=== PATIENT | female | born 1945 | race Two or more races ===

== ENCOUNTER 2019-05-30 14:04 | Emergency (ER) | payer OTHER ==
[~2019-05-30] VITALS: Ht 157.5 cm; Wt 82.6 kg
[2019-05-30] MEDS ORDERED: BUMETANIDE1 MG (14:57)
[2019-05-30] MEDS ORDERED: BUSPIRONE HCL5 MG (14:57)
[2019-05-30] MEDS ORDERED: DOXAZOSIN MESYLA4 MG (14:57)
[2019-05-30] MEDS ORDERED: ALENDRONATE SOD70 MG (14:57)
[2019-05-30] MEDS ORDERED: CLOPIDOGREL BIS75 MG (14:58)
[2019-05-30] MEDS ORDERED: GABAPENTIN800 MG (14:59)
[2019-05-30] MEDS ORDERED: SIMVASTATIN20 MG (14:59)
[2019-05-30] MEDS ORDERED: OMEPRAZOLE20 M1 (14:59)
[2019-05-30] MEDS ORDERED: COZAAR50 MG (14:59)
[2019-05-30] MEDS ORDERED: METFORMIN HCL500 M2 (14:59)
[2019-05-30] MEDS ORDERED: PROCTOZONE-HC30 GM (15:00)
[2019-05-30] MEDS ORDERED: SYNTHROID50 MCG (15:00)
== END 2019-05-30 22:23 | disposition home or self-care (01) ==
LOC: ER 14:04
DX: K59.09 Other constipation (principal)

== ENCOUNTER 2025-02-25 17:15 | Inpatient (IN) | payer OTHER ==
[~2025-02-25] VITALS: Ht 157.5 cm; Wt 59.9 kg
[~2025-02-25 17:15] MED LIST: ALENDRONATE SOD70 MG; BUMETANIDE1 MG; BUSPIRONE HCL5 MG; CLOPIDOGREL BIS75 MG; COZAAR50 MG; DOXAZOSIN MESYLA4 MG; GABAPENTIN800 MG; METFORMIN HCL500 M2; OMEPRAZOLE20 M1; PROCTOZONE-HC30 GM; SIMVASTATIN20 MG; SYNTHROID50 MCG
[2025-02-25] MEDS ORDERED: GRALISE600 MG PO (17:52)
[2025-02-25] MEDS ORDERED: BUMETANIDE1 MG PO (17:53)
[2025-02-25] MEDS ORDERED: ECOTRIN81 MG PO (17:53)
[2025-02-25] MEDS ORDERED: ATACAND16 MG PO (17:53)
[2025-02-25] MEDS ORDERED: METFORMIN HCL1000 MG PO (17:53)
[2025-02-25] MEDS ORDERED: BUSPIRONE HCL5 MG PO (17:53)
[2025-02-25] MEDS ORDERED: RESTORIL15 M1 PO (17:54)
[2025-02-25] MEDS ORDERED: SIMVASTATIN5 MG PO (17:54)
[2025-02-25] MEDS ORDERED: SYNTHROID75 MCG PO (17:54)
[2025-02-25] MEDS ORDERED: PEPCID AC20 MG PO (17:54)
[2025-02-25] MEDS ORDERED: MINERAL OIL 30 ML BLIST.PACK PO ONE (18:30)
[2025-02-25] MEDS ORDERED: MAGNESIUM HYDROXIDE 400 MG/5 ML ML PO ONE (18:30)
[2025-02-25] MEDS ORDERED: LACTULOSE 20 G/30 ML BLIST.PACK PO ONE (18:30)
[2025-02-25] MEDS ORDERED: LACTULOSE 20 G/30 ML BLIST.PACK ONE (18:31)
[2025-02-25] MEDS ORDERED: MINERAL OIL 30 ML BLIST.PACK ONE (18:31)
[2025-02-25] MEDS ORDERED: DIATRIZOATE MEGLUMINE, SODIUM 30 ML BOTTLE ONE (20:24)
[2025-02-25] MEDS ORDERED: DIATRIZOATE MEGLUMINE, SODIUM 30 ML BOTTLE PO ONE (20:30)
[2025-02-25] MEDS ORDERED: 0.9 % SODIUM CHLORIDE 1,000 ML IV ONE (20:30)
[2025-02-25] MEDS ORDERED: 0.9 % SODIUM CHLORIDE 500 ML IV ONE (20:45)
[2025-02-25 21:48] LABS: HEMATOCRIT 33.5 % (36.0-45.00); HEMOGLOBIN 11.4 g/dL (12.0-15.00); MEAN CELL VOLUME 90.4 fL (80.00-100.00); MEAN CORPUSCULAR HEMOGLOBIN 30.8 pg (27.00-32.0); PLATELET COUNT 232 K/uL (150-450); RED BLOOD COUNT 3.71 M/uL (4.00-6.00)
[2025-02-25 21:53] LABS: ERYTHROCYTE SEDIMENTATION RATE 27 mm/hr
[2025-02-25 22:31] LABS: INR 1.08; PARTIAL THROMBOPLASTIN TIME 27.8 SECONDS (22.0-34.0); PROTHROMBIN TIME 11.7 SECONDS (9.0-11.5)
[2025-02-25 22:36] LABS: ALBUMIN 3.9 gm/dL (3.4-5.0); BILIRUBIN TOTAL 0.35 mg/dL (0.3-1.2); CALCIUM 9.4 mg/dL (8.5-10.1); CREATININE SERUM 1.1 mg/dL (0.55-1.02); GFR 47.91; GLOBULINA 3.6 G/DL (2.4-3.5); POTASSIUM 5.07 mEq/L (3.5-5.1); TOTAL PROTEIN 7.5 gm/dL (6.4-8.2)
[2025-02-25 23:05] LABS: URINE APPEARANCE Clear; URINE BILIRRUBIN Negative (NEGATIVE); URINE BLOOD NHT; URINE COLOR Yellow; URINE GLUCOSE Negative (NEGATIVE); URINE KETONE Negative (NEGATIVE); URINE LEUKOCYTE Moderate; URINE NITRATE Negative; URINE PROTEIN Negative (NEGATIVE); URINE UROBILINOGEN 0.2 E.U./dl
[2025-02-25 23:08] LABS: URINE BACTERIA 57.5 uL (0.0-1933); URINE CAST 3.82 uL (0.0-1.40); URINE EPITHELIAL CELLS 16.6 uL (0.0-38.8); URINE WBC 82.2 uL (0.0-23.2)
[2025-02-25 23:35] LABS: COVID-19 AG NEGATIVE (NEGATIVE)
[2025-02-25] MEDS ORDERED: CEFTRIAXONE SODIUM 2,000 MG in 0.9 % SODIUM CHLORIDE 100 ML IV SCH (23:36)
[2025-02-25] MEDS ORDERED: FAMOTIDINE/PF 20 MG in 0.9 % SODIUM CHLORIDE 8 ML IV PUSH SCH (23:38)
[2025-02-25] MEDS ORDERED: DEXTROSE 50 % IN WATER 0.5 G/ML DISP.SYRIN IV PRN (23:45)
[2025-02-25] MEDS ORDERED: ONDANSETRON HCL 4 MG in 0.9 % SODIUM CHLORIDE 50 ML IV PRN (23:45)
[2025-02-25] MEDS ORDERED: INSULIN LISPRO 1,000 UNIT/10 ML UNITS SUBCUTANEO PRN (23:45)
[2025-02-25] MEDS ORDERED: 0.9 % SODIUM CHLORIDE 1,000 ML IV SCH (23:45)
[2025-02-25] MEDS ORDERED: ACETAMINOPHEN 500 MG GEL..CAP PO PRN (23:45)
[2025-02-26] MEDS ORDERED: FAMOTIDINE/PF 20 MG/2 ML VIAL ONE (00:03)
[2025-02-26] MEDS ORDERED: CEFTRIAXONE SODIUM 2,000 MG VIAL ONE (00:03)
[2025-02-26] MEDS ORDERED: LEVOTHYROXINE SODIUM 75 MCG TABLET PO SCH (06:00)
[2025-02-26 08:00] VITALS: BP 105/67; O2SAT 95
[2025-02-26] MEDS ORDERED: BUMETANIDE 0.5 MG TABLET PO SCH (09:00)
[2025-02-26] MEDS ORDERED: POLYETHYLENE GLYCOL 3350 17 GM BLIST.PACK PO SCH (09:00)
[2025-02-26] MEDS ORDERED: CANDESARTAN CILEXETIL 16 MG TABLET PO SCH (09:00)
[2025-02-26] MEDS ORDERED: ASPIRIN 81 MG TABLET.EC PO SCH (09:00)
[2025-02-26] MEDS ORDERED: NA PHOS,M-B/NA PHOS,DI-BA 1 BOTTLE ENEMA RECTAL STA (10:04)
[2025-02-26 16:00] VITALS: BP 112/70; O2SAT 97
[2025-02-26] MEDS ORDERED: SIMVASTATIN 10 MG TABLET PO SCH (17:00)
[2025-02-26] MEDS ORDERED: TEMAZEPAM 15 MG CAPSULE PO SCH (21:00)
[2025-02-26] MEDS ORDERED: GABAPENTIN 800 MG TABLET PO SCH (21:00)
[2025-02-27 00:48] VITALS: BP 93/61; O2SAT 98
[2025-02-27] MEDS ORDERED: DEXTROSE 50 % IN WATER 0.5 G/ML VIAL IV PRN (07:45)
[2025-02-27 08:08] VITALS: BP 110/72; O2SAT 99
[2025-02-27] MEDS ORDERED: BUSPIRONE HCL 5 MG TABLET PO SCH ×2 (09:00)
[2025-02-27] MEDS ORDERED: GABAPENTIN 100 MG CAPSULE PO SCH (09:00)
== END 2025-02-27 17:08 | disposition home or self-care (01) | DRG 392 ==
LOC: ER 17:16 → SURH 02-26 00:34 → MEDJ 02-26 00:34 → SEC-K 02-26 00:45 → MEDJ 02-26 01:44 → SEC-K 02-26 02:43 → SURH 02-26 02:45
PROVIDERS: General Practice; ADMIT Student in an Organized Health Care Education/Training Program; ATTEND Student in an Organized Health Care Education/Training Program
DX: K59.00 Constipation, unspecified (principal); N39.0 Urinary tract infection, site not specified; R10.9 Unspecified abdominal pain

== ENCOUNTER 2025-03-26 18:44 | Emergency (ER) | payer OTHER ==
[~2025-03-26] VITALS: Ht 157.5 cm; Wt 61.2 kg
[~2025-03-26 18:44] MED LIST changes: +ATACAND16 MG PO; +BUMETANIDE1 MG PO; +BUSPIRONE HCL5 MG PO; +ECOTRIN81 MG PO; +GRALISE600 MG PO; +METFORMIN HCL1000 MG PO; +PEPCID AC20 MG PO; +RESTORIL15 M1 PO; +SIMVASTATIN5 MG PO; +SYNTHROID75 MCG PO
[2025-03-26] MEDS ORDERED: FOSAMAX (19:44)
[2025-03-26] MEDS ORDERED: 0.9 % SODIUM CHLORIDE 1,000 ML IV ONE (20:30)
[2025-03-26] MEDS ORDERED: FAMOtidine 10 MG/ML (4ML VIAL) IV ONE (20:30)
[2025-03-26] MEDS ORDERED: BARIUM SULFATE 450 ML ORAL.SUSP PO ONE (20:40)
[2025-03-26] MEDS ORDERED: FAMOTIDINE/PF 20 MG/2 ML VIAL ONE (20:41)
[2025-03-26 21:07] LABS: BASO % 0.4 % (0.1-1.2); EOS # 0.42 (0.04-0.54); EOS % 6.3 % (0.7-7.0); HEMOGLOBIN 10.7 g/dL (11.2-15.7); LYMPH # 1.83 (1.18-3.74); LYMPH % 27.2 % (19.3-53.1); MONO # 0.66 (0.24-0.82); MONO % 9.8 % (4.7-12.5); NEUT # 3.77 (1.56-6.13); NEUT % 56.2 % (34.0-71.1); PLATELET COUNT 231 K/uL (163-369); RED BLOOD COUNT 3.57 M/uL (3.93-5.22); RED CELL DISTRIBUTION WIDTH 13.2 % (11.6-14.4)
[2025-03-26 21:30] LABS: INR 1.06; PARTIAL THROMBOPLASTIN TIME 29.4 SECONDS (22.0-34.0); PROTHROMBIN TIME 11.5 SECONDS (9.0-11.5)
[2025-03-26 21:37] LABS: ALBUMIN 3.9 gm/dL (3.4-5.0); BILIRUBIN TOTAL 0.37 mg/dL (0.3-1.2); CALCIUM 9.1 mg/dL (8.5-10.1); CREATININE SERUM 0.91 mg/dL (0.55-1.02); GFR 59.63; GLOBULINA 3.4 G/DL (2.4-3.5); POTASSIUM 4.82 mEq/L (3.5-5.1); TOTAL PROTEIN 7.3 gm/dL (6.4-8.2)
[2025-03-26 23:32] LABS: PH,URINE 5.5 (5.0-8.0); URINE APPEARANCE Cloudy; URINE BILIRRUBIN Negative (NEGATIVE); URINE BLOOD Small; URINE COLOR Yellow; URINE GLUCOSE Negative (NEGATIVE); URINE KETONE Negative (NEGATIVE); URINE LEUKOCYTE Large; URINE NITRATE Negative; URINE PROTEIN Negative (NEGATIVE); URINE UROBILINOGEN 0.2 E.U./dl
[2025-03-26 23:36] LABS: URINE BACTERIA 165.1 uL (0.0-1933); URINE RBC 7.9 uL (0.0-20.8); URINE WBC 261.1 uL (0.0-23.2)
[2025-03-26] MEDS ORDERED: CEFTRIAXONE SODIUM 1,000 MG VIAL IV ONE (23:45)
[2025-03-27] MEDS ORDERED: HYDROGEN PEROXIDE 473 ML BOTTLE TOP ONE (00:59)
[2025-03-27] MEDS ORDERED: MINERAL OIL 30 ML BLIST.PACK ONE (00:59)
[2025-03-27] MEDS ORDERED: CEFTRIAXONE SODIUM 1,000 MG VIAL ONE (01:38)
[2025-03-27] MEDS ORDERED: MIRALAX510 GM PO (04:06)
== END 2025-03-27 04:12 ==
LOC: ER 19:01
PROVIDERS: General Practice
DX: K59.00 Constipation, unspecified (principal); I10 Essential (primary) hypertension; E03.8 Other specified hypothyroidism; E11.9 Type 2 diabetes mellitus without complications; Z79.84 Long term (current) use of oral hypoglycemic drugs; Z88.2 Allergy status to sulfonamides
CPT/HCPCS: 36415; 74177; 96365; 96366; 99284; J0696; J3490; J7030; Q9965

== ENCOUNTER 2025-05-14 16:34 | Emergency (ER) | payer OTHER ==
[~2025-05-14] VITALS: Ht 157.5 cm; Wt 59.0 kg
[~2025-05-14 16:34] MED LIST changes: +FOSAMAX; +MIRALAX510 GM PO
[2025-05-14 17:18] VITALS: BP 113/71; O2SAT 9
[2025-05-14] MEDS ORDERED: 0.9 % SODIUM CHLORIDE 1,000 ML IV STA (23:13)
[2025-05-14] MEDS ORDERED: LACTULOSE 20 G/30 ML BLIST.PACK PO STA (23:13)
[2025-05-14] MEDS ORDERED: MAGNESIUM HYDROXIDE 400 MG/5 ML ML PO STA (23:14)
[2025-05-14] MEDS ORDERED: MINERAL OIL 30 ML BLIST.PACK PO STA (23:14)
[2025-05-15 00:04] LABS: BASO % 0.5 % (0.1-1.2); EOS # 0.30 (0.04-0.54); EOS % 3.5 % (0.7-7.0); LYMPH # 1.17 (1.18-3.74); LYMPH % 13.6 % (19.3-53.1); MEAN PLATELET VOLUME 10.50 fl (9.4-12.4); MONO # 0.89 (0.24-0.82); MONO % 10.3 % (4.7-12.5); NEUT # 6.18 (1.56-6.13); NEUT % 71.6 % (34.0-71.1); RED CELL DISTRIBUTION WIDTH 13.2 % (11.6-14.4)
[2025-05-15 00:50] LABS: INR 1.08
[2025-05-15 00:55] LABS: ALT/SGPT 27.0 U/L (12-78); AST/SGOT 24.0 U/L (15-37); BILIRUBIN TOTAL 0.59 mg/dL (0.3-1.2); BUN CREA RATIO 22.0 (7.0-25.0); CREATININE SERUM 1.0 mg/dL (0.55-1.02); GFR 53.48; GLOBULINA 3.1 G/DL (2.4-3.5); GLUCOSE FASTING 130.0 mg/dL (65-100); OSMOLALITY SERUM 270.0 MOSM/KG (275-295)
[2025-05-15] MEDS ORDERED: ENULOSE10 GM/15 M PO (04:23)
== END 2025-05-15 04:27 ==
LOC: ER 16:34
DX: K59.01 Slow transit constipation (principal); K59.00 Constipation, unspecified; Z88.2 Allergy status to sulfonamides